=== PATIENT | female | born 1965 | race Caucasian/White ===

== ENCOUNTER 2018-02-25 18:38 | Emergency (ER) | payer SELFPAY ==
[2018-02-25] MEDS ORDERED: Ketorolac Tromethamine 30 MG/ML VIAL ONE (19:19)
[2018-02-25] MEDS ORDERED: Diazepam 5 MG TAB ONE (19:19)
[2018-02-25 19:28] LABS: Band 2 % (5-11); Eosinophils 1 % (0-10); Hemoglobin 14.2 g/dL (12.0-16.0); Lymphocytes 25 % (21-51); MDiff Complete? YES; Mean Corpuscular HGB CONC 35.2 g/dL (32.0-36.0); Mean Corpuscular Hemoglobin 31.6 pg (27.0-31.0); Mean Corpuscular Volume 89.7 fl (81.0-99.0); Mean Platelet Volume 8.1 fL (7.4-10.4); Monocytes 8 % (0-10); Neutrophil 53 % (42-75); PLT Morphology Comment Appears Adequate; Platelet Count 249 thou/uL (130-400); RBC Distribution Width 10.8 % (11.5-14.5); Reactive Lymphocytes 11 % (0-10); White Blood Cell (WBC) Count 7.9 thou/uL (4.8-10.8)
[2018-02-25 19:32] LABS: ALT (SGPT) 23 U/L (8-55); AST (SGOT) 21 U/L (5-34); Albumin 4.4 g/dL (3.5-5.0); Alkaline Phosphatase 69 U/L (40-150); Anion Gap 16 mmol/L (10-20); BUN (Urea Nitrogen) 13 mg/dL (9.8-20.1); Bilirubin, Total 0.5 mg/dL (0.2-1.2); CK (CPK) 49 U/L (29-168); CKMB 0.9 ng/mL (0-6.6); Calc. Creatinine Clearance 0 mL/min (70-130); Carbon Dioxide 24 mmol/L (22-29); Chloride 103 mmol/L (98-107); Estimated GFR-MDRD 69; Globulin 3.4 g/dL (2.4-3.5); Glucose 88 mg/dL (70-105); Lipase 80 U/L (8-78); Potassium 3.9 mmol/L (3.5-5.1); Protein, Total 7.8 g/dL (6.0-8.3); Sodium 139 mmol/L (136-145); Troponin I Less than 0.010 ng/mL (< 0.028)
[2018-02-25] MEDS ORDERED: Lidocaine Viscous Sol 2% 15 ml UD Cup ONE (19:38)
[2018-02-25] MEDS ORDERED: Mag-Al Plus 1200 MG/1200 MG/120 MG/30 ML UDCUP ONE (19:38)
--- NOTE | 2018-02-25 19:47 | RAD ---
TWO VIEWS CHEST: 02/25/18 HISTORY: Cough. COMPARISON: None. FINDINGS: Normal cardiac silhouette. The lungs and pleural spaces are clear. No pneumothorax or osseous abnorma lities. IMPRESSION: No acute cardiopulmonary process. POS: [facility]
--- NOTE | 2018-02-25 20:04 | CT ---
CT ANGIOGRAM OF THE THORACIC AND ABDOMINAL AORTA: HISTORY: Three days of chest pain. Burning sensation in the extremities. COMPARISON: None. TECHNIQUE: CT angiogram of the thoracic and abdominal aorta are performed in the axial plane. Three-dimensional reformatted images are submitted for interpretation. FINDINGS: CHEST: No mediastinal mass, lymphadenopathy, or hematoma. Heart size is normal. No pericardial eff usion. Trachea and central bronchi are patent. Lungs are clear of any consolidation or masses. Min imal linear opacities likely represent areas of scar/atelectasis. No pleural effusion or pneumothora x. ABDOMEN: Intrahepatic and extrahepatic portal vein is patent. The gallbladder is surgically absent. The liver, spleen, pancreas, and adrenal glands have appropriate arterial phase enhancement. No ga strohepatic, retrocrural, or periportal lymphadenopathy. No mesenteric mass, lymphadenopathy, free air, or free fluid. Limited evaluation of the alimentary canal due to lack of oral contrast. No evidence of bowel obstru ction. The ileocecal junction is normal. The appendix is surgically absent. No evidence of colonic obstruction. Symmetric attenuation of the psoas muscle. Symmetric enhancement of the kidneys. The visualized ureters are unremarkable. The thoracic and lumbar spine vertebral body heights are maintained. No fracture. ANGIOGRAM: The aortic root, ascending thoracic aorta, aortic arch, descending thoracic aorta, abdomi nal aorta, and aortic bifurcation have an overall normal diameter. No evidence of aneurysm. No evid ence of dissection. The origin of the great vessels of the neck, as well as the subclavian arteries, is unremarkable. Th e central pulmonary arteries have appropriate enhancement without obvious central filling defect. Th e superior mesenteric artery origin, bilateral renal artery ostia, and inferior mesenteric artery are patent. The visualized iliac arteries are also patent. There appears to be short-segment moderate stenosis involving the origin of the celiac artery. IMPRESSION: 1. No evidence of aneurysm or dissection. 2. 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 POS: [facility]
== END 2018-02-25 20:15 | disposition home or self-care (01) ==
LOC: SCSER 18:38
DX: K21.9 Gastro-esophageal reflux disease without esophagitis (principal); G62.9 Polyneuropathy, unspecified; M62.838 Other muscle spasm; I10 Essential (primary) hypertension; E78.00 Pure hypercholesterolemia, unspecified; F41.9 Anxiety disorder, unspecified; F32.9 Major depressive disorder, single episode, unspecified; G89.29 Other chronic pain; Z63.79 Other stressful life events affecting family and household; Z79.899 Other long term (current) drug therapy
CPT/HCPCS: 71046; 71275; 80053; 82550; 82553; 83690; 84484; 85025; 93005; 96374; J1885

== ENCOUNTER 2018-10-07 11:24 | Outpatient (CLI) | payer OTHER ==
--- NOTE | 2018-10-07 14:24 | MRI ---
MRI LUMBAR SPINE WITHOUT CONTRAST: History: Low back pain that radiates down both hips for one year. Technique: Multiplanar, multisequence MRI images were obtained of the lumbar spine without contrast. FINDINGS: Mild disc desiccation is seen in the mid lumbar spine. Vertebral bodies and intervertebral discs demo nstrate normal height and alignment without fracture or subluxation. The conus medullaris terminates normally at T12. The prevertebral and paraspinal soft tissues are unremarkable. T12-L1: Unremarkable. L1-2: Unremarkable. L2-3: A small generalized concentric disc bulge is seen. No posterior facet arthrosis. Minimal centra l canal stenosis. No neural foraminal stenosis. L3-4: Unremarkable. L4-5: A minimal generalized concentric disc bulge is seen. No posterior facet arthrosis. No significa nt neural foraminal or central canal stenosis. L5-S1: Unremarkable. IMPRESSION: Mild degenerative changes of the lumbar spine as above. POS: [facility]
== END 2018-10-07 11:25 | disposition home or self-care (01) ==
LOC: SCSMRI 11:24
PROVIDERS: ATTEND Family Medicine
DX: M54.41 Lumbago with sciatica, right side (principal); M54.42 Lumbago with sciatica, left side; G89.29 Other chronic pain; M47.816 Spondylosis without myelopathy or radiculopathy, lumbar region
CPT/HCPCS: 72148

== ENCOUNTER 2018-11-17 15:27 | Emergency (ER) | payer OTHER, SELFPAY ==
[2018-11-17] MEDS ORDERED: Metoclopramide HCl 10 MG/2 ML VIAL ONE (16:06)
[2018-11-17] MEDS ORDERED: diphenhydrAMINE 50 MG/ML VIAL ONE (16:06)
[2018-11-17 16:21] LABS: Eosinophils 2 % (0-10); Hemoglobin 14.7 g/dL (12.0-16.0); Lymphocytes 28 % (21-51); MDiff Complete? YES; Mean Corpuscular HGB CONC 34.3 g/dL (32.0-36.0); Mean Corpuscular Hemoglobin 31.6 pg (27.0-31.0); Mean Corpuscular Volume 92.1 fL (78.0-98.0); Mean Platelet Volume 8.7 fL (7.4-10.4); Monocytes 3 % (0-10); Neutrophil 57 % (42-75); Platelet Count 347 thou/uL (130-400); Platelet Morphology Comment Appears Adequate; Reactive Lymphocytes 10 % (0-10); Red Blood Cell (RBC) Count 4.64 mill/uL (4.20-5.40); White Blood Cell (WBC) Count 8.4 thou/uL (4.8-10.8)
[2018-11-17 16:25] LABS: ALT (SGPT) 42 U/L (8-55); AST (SGOT) 33 U/L (5-34); Albumin 4.3 g/dL (3.5-5.0); Alkaline Phosphatase 53 U/L (40-150); Anion Gap 16 mmol/L (10-20); BUN (Urea Nitrogen) 12 mg/dL (9.8-20.1); Bilirubin, Total 0.4 mg/dL (0.2-1.2); Calc. Creatinine Clearance 0 mL/min (70-130); Calcium 9.7 mg/dL (7.8-10.44); Carbon Dioxide 25 mmol/L (22-29); Chloride 104 mmol/L (98-107); Estimated GFR-MDRD 72; Globulin 2.8 g/dL (2.4-3.5); Glucose 86 mg/dL (70-105); Potassium 3.5 mmol/L (3.5-5.1); Protein, Total 7.1 g/dL (6.0-8.3); Sodium 141 mmol/L (136-145)
--- NOTE | 2018-11-17 16:44 | RAD ---
2 VIEW CHEST: Date: 11/17/18 COMPARISON: 02/25/18. CLINICAL INDICATION: Epigastric pain. FINDINGS: No free air is seen beneath the hemidiaphragms. Cardiac silhouette is within normal limits of size. T here is no lobar consolidation, effusion, or pneumothorax. IMPRESSION: No focal consolidation. POS: [facility]
--- NOTE | 2018-11-17 17:02 | CT ---
HEAD CT NONCONTRAST: Date: 11/17/18 CLINICAL HISTORY: Dizziness. No prior comparison. FINDINGS: No acute intracranial hemorrhage, mass effect, midline shift, or ventriculomegaly. There is no acute fluid level of the imaged paranasal sinuses. IMPRESSION: No acute intracranial abnormalities. POS: [facility]
== END 2018-11-17 17:17 | disposition home or self-care (01) ==
LOC: SCSER 15:27
DX: R51 Headache (principal); R42 Dizziness and giddiness; I10 Essential (primary) hypertension; E03.9 Hypothyroidism, unspecified; E78.5 Hyperlipidemia, unspecified; F41.9 Anxiety disorder, unspecified; F32.9 Major depressive disorder, single episode, unspecified; F43.10 Post-traumatic stress disorder, unspecified; Z87.891 Personal history of nicotine dependence; Z79.899 Other long term (current) drug therapy
CPT/HCPCS: 70450; 71046; 80053; 84484; 85025; 93005; 96365; 96375; J1200; J2765

== ENCOUNTER 2018-12-07 11:54 | Outpatient (CLI) | payer OTHER ==
--- NOTE | 2018-12-07 13:39 | RAD ---
LUMBAR SPINE 3 VIEWS INCLUDING FLEXION AND EXTENSION: Date: 12/07/18 HISTORY: Low back pain. FINDINGS/IMPRESSION: Lateral views of the lumbar spine in neutral, flexion, and extension positions demonstrate mild degen erative changes. No compression fracture or subluxation is seen. No change in alignment is noted on f lexion or extension. POS: [facility]
--- NOTE | 2018-12-07 15:15 | MRI ---
MRI THORACIC SPINE WITHOUT CONTRAST: 12/07/2018 HISTORY: Pain with radiculopathy bilaterally. COMPARISON: None. TECHNIQUE: Multiplanar, multisequence MR imaging of the thoracic spine provided without contrast. FINDINGS: The sagittal STIR imaging demonstrates no focal area of osseous marrow edema. Thoracic vertebral bod y height and alignment appear within normal limits. There is no significant central canal stenosis at any level within the thoracic spine. There is no f ocal area of abnormal signal intensity identified within the imaged spinal cord. There is a small di sk protrusion in the right paracentral region, with an associated annular tear at T12-L1 on the right . This causes no significant central canal or neural foraminal stenosis. There is no significant neural foraminal stenosis on either side at any level within the thoracic spi ne. Vertebral body marrow signal intensity appears within normal limits throughout the thoracic spine. IMPRESSION: Mild disk disease at T12-L1, as detailed above. There is no significant central canal or neural fora brad stenosis within the thoracic spine. POS: [facility]
== END 2018-12-07 11:55 | disposition home or self-care (01) ==
LOC: SCSMRI 11:54
PROVIDERS: ATTEND Nurse Practitioner Family
DX: M54.6 Pain in thoracic spine (principal); M54.5 Low back pain; M47.816 Spondylosis without myelopathy or radiculopathy, lumbar region; M51.35 Other intervertebral disc degeneration, thoracolumbar region
CPT/HCPCS: 72100; 72146

== ENCOUNTER 2019-01-04 10:21 | Outpatient (CLI) | payer OTHER ==
[~2019-01-04 10:21] MED LIST: Gadobenate Dimeglumine 529 MG/1 ML (20ML VIAL) ONE
--- NOTE | 2019-01-04 21:12 | MRI ---
BRAIN MRI WITHOUT AND WITH CONTRAST: History: Chronic non-intractable headaches. Polyneuropathy. Comparison: None. Technique: MRI of the brain was performed with and without intravenous gadolinium administration. Mul tisequential, multiplanar imaging was performed. FINDINGS: There does appear to be artifact projecting which appears to be something in the patient's right fron nery scalp or possibly patient's right anterior hair. No definite hemorrhage on the axial gradient echo sequence. No parenchymal mass, mass effect or midline shift. Brain volume is age appropriate. Cortical castillo whi te matter differentiation is preserved. Ventricles and sulci are patent and symmetric. Central arterial flow voids are maintained. Absent restricted diffusion. No significant T2 or FLAIR w bren matter hyperintensities. Adequate aeration of the sinuses and mastoid air cells. Calvarium has appropriate T1 marrow signal intensity. Brain parenchymal structures are unremarkable. No pathologic enhancement of the brain parenchyma. IMPRESSION: Unremarkable pre and post contrast brain MRI. POS: [facility]
== END 2019-01-04 10:22 | disposition home or self-care (01) ==
LOC: SCSMRI 10:21
PROVIDERS: ATTEND Family Medicine
DX: R51 Headache (principal); G62.9 Polyneuropathy, unspecified; R42 Dizziness and giddiness
CPT/HCPCS: 70553; A9577

== ENCOUNTER 2019-01-28 11:35 | Emergency (ER) | payer OTHER ==
[2019-01-28] MEDS ORDERED: Aspirin Chewable 81 MG TAB ONE (12:10)
--- NOTE | 2019-01-28 12:15 | RAD ---
EXAM: CHEST TWO VIEWS: History: Chest pain/shortness of breath Comparison: 11-17-18 FINDINGS: Heart size is normal. The lungs are clear. No pneumonia, edema, pleural effusion, or other acute proc ess. IMPRESSION: No acute intrathoracic disease. Stable in appearance. POS: [facility]
[2019-01-28] MEDS ORDERED: Lorazepam 2 MG/ML VIAL ONE (12:33)
[2019-01-28 12:52] LABS: ALT (SGPT) 31 U/L (8-55); Albumin 4.5 g/dL (3.5-5.0); Alkaline Phosphatase 64 U/L (40-150); Anion Gap 17 mmol/L (10-20); BUN (Urea Nitrogen) 13 mg/dL (9.8-20.1); Bilirubin, Total 0.7 mg/dL (0.2-1.2); Calc. Creatinine Clearance 0 mL/min (70-130); Calcium 9.7 mg/dL (7.8-10.44); Carbon Dioxide 22 mmol/L (22-29); Chloride 104 mmol/L (98-107); Estimated GFR-MDRD 86; Glucose 70 mg/dL (70-105); Lipase 54 U/L (8-78); Potassium 4.4 mmol/L (3.5-5.1); Protein, Total 7.5 g/dL (6.0-8.3); Sodium 139 mmol/L (136-145)
[2019-01-28 13:04] LABS: AST (SGOT) 31 U/L (5-34)
[2019-01-28 13:09] LABS: Hemoglobin 13.4 g/dL (12.0-16.0); Mean Corpuscular Hemoglobin 31.1 pg (27.0-31.0); Mean Corpuscular Volume 91.4 fL (78.0-98.0); Mean Platelet Volume 6.9 fL (7.4-10.4); Platelet Count 286 thou/uL (130-400); RBC Distribution Width 11.9 % (11.5-14.5); Red Blood Cell (RBC) Count 4.32 mill/uL (4.20-5.40); White Blood Cell (WBC) Count 6.5 thou/uL (4.8-10.8)
[2019-01-28 13:10] LABS: #Basophils 0.1 thou/uL (0.0-0.2); #Eosinphils 0.1 thou/uL (0.0-0.7); #Lymphocytes 2.6 thou/uL (1.20-3.40); #Monocytes 0.5 thou/uL (0.11-0.59); #Neutrophils 3.3 thou/uL (1.40-6.50); %Basophils 1.4 % (0.0-1.0); %Eosinophils 1.5 % (0.0-10.0); %Lymphocytes 39.9 % (21.0-51.0); %Neutrophils 50.3 % (42.0-75.0)
[2019-01-28 15:41] LABS: Troponin I Less than 0.010 ng/mL (< 0.028)
== END 2019-01-28 16:09 | disposition home or self-care (01) ==
LOC: SCSER 11:35
DX: R07.89 Other chest pain (principal); R05 Cough; R09.89 Other specified symptoms and signs involving the circulatory and respiratory systems; R20.2 Paresthesia of skin; E78.5 Hyperlipidemia, unspecified; I10 Essential (primary) hypertension; F41.9 Anxiety disorder, unspecified; F43.10 Post-traumatic stress disorder, unspecified; Z87.891 Personal history of nicotine dependence
CPT/HCPCS: 71046; 80053; 83690; 83880; 84484; 85025; 85379; 87804; 93005; 96374; J2060

== ENCOUNTER 2019-02-01 05:59 | Day surgery (SDC) | payer OTHER ==
[2019-01-29 14:08] VITALS: BMI 22.9
[2019-02-01] MEDS ORDERED: Diazepam 5 MG TAB ONE (06:16)
[2019-02-01] MEDS ORDERED: Heparin 10,000 UNITS/1 ML VIAL ONE (07:51)
[2019-02-01] MEDS ORDERED: Verapamil 5 MG/2 ML VIAL ONE (07:51)
[2019-02-01] MEDS ORDERED: Nitroglycerin 100MG/250ML BOT 250 ML ONE (07:51)
[2019-02-01] MEDS ORDERED: Midazolam HCl 2 mg/2 ml Vial ONE (08:15)
[2019-02-01] MEDS ORDERED: Fentanyl 100 MCG/2 ML VIAL ONE (08:15)
[2019-02-01] MEDS ORDERED: Morphine 2 MG/ML SYRINGE ONE (08:52)
[2019-02-01] MEDS ORDERED: Atropine Sulfate 1 mg/10 ml Syringe ONE (10:16)
[2019-02-01] MEDS ORDERED: EPINEPHrine 1 MG/ML AMP ONE (10:17)
[2019-02-01] MEDS ORDERED: EPINEPHrine 1 MG/10 ML Abboject SYRINGE ONE (10:17)
[2019-02-01] MEDS ORDERED: Iopamidol 370 76% 100 ML VIAL ONE (10:54)
--- NOTE | 2019-02-02 21:07 | EKG ---
Test Reason : POST CODE BLUE Blood Pressure : / mmHG Vent. Rate : 106 BPM Atrial Rate : 106 BPM P-R Int : 180 ms QRS Dur : 084 ms QT Int : 364 ms P-R-T Axes : 047 048 015 degrees QTc Int : 483 ms Sinus tachycardia Otherwise normal ECG When compared with ECG of 17-NOV-2018 15:35, Vent. rate has increased BY 35 BPM QT has lengthened Confirmed by BRIANNE ANN, . S. (4) on 02/02/2019 9:06:41 PM Referred By: GEORGE Confirmed By:DR. Arlette DECKER MD
== END 2019-02-01 15:35 | disposition home or self-care (01) ==
LOC: CCL 05:59
PROVIDERS: ATTEND Internal Medicine Cardiovascular Disease
PROC: B2101ZZ Fluoroscopy of Single Coronary Artery using Low Osmolar Contrast (ICD-10-PCS; principal; 2019-02-01)
PROC: 4A023N7 Measurement of Cardiac Sampling and Pressure, Left Heart, Percutaneous Approach (ICD-10-PCS; principal; 2019-02-01)
DX: I25.10 Atherosclerotic heart disease of native coronary artery without angina pectoris (principal); I10 Essential (primary) hypertension; F32.9 Major depressive disorder, single episode, unspecified; E78.5 Hyperlipidemia, unspecified; E03.9 Hypothyroidism, unspecified; G62.9 Polyneuropathy, unspecified; Z90.710 Acquired absence of both cervix and uterus; Z90.49 Acquired absence of other specified parts of digestive tract; Z90.89 Acquired absence of other organs; Z88.8 Allergy status to other drugs, medicaments and biological substances; Z79.899 Other long term (current) drug therapy; Z98.890 Other specified postprocedural states
CPT/HCPCS: 93005; 93010; 93458; 99152; C1769; J0171; J0461; J1644; J2250; J2270; J3010; Q9967

== ENCOUNTER 2019-04-01 06:46 | Day surgery (SDC) | payer OTHER ==
[2019-03-31 14:31] VITALS: BMI 22.4
--- NOTE | 2019-04-01 11:25 | OP ---
DATE OF PROCEDURE: 04/01/2019 PROCEDURES PERFORMED: 1. Esophagogastroduodenoscopy with biopsy. 2. Colonoscopy with polypectomy. INDICATIONS FOR PROCEDURE: Nausea, vomiting, midepigastric abdominal pain, and personal history of colon polyps (colonoscopy in 2014 with unknown number of polyps removed and unknown histology). DESCRIPTION OF PROCEDURE: After the risks and benefits of the procedures were explained to the patient including risks of bleeding, infection, perforation, reactions to anesthesia, aspiration and/or pain, informed consent was obtained. The patient was then taken to the endoscopy suite, where deep sedation was administered via propofol and anesthesia support. Once adequate sedation was achieved, the standard gastroscope was introduced into the mouth with intubation of the esophagus, stomach, and the proximal small intestines with the findings listed below. Upon completion of this portion of the procedure, the gastroscope was removed from the patient and the bed was rotated 180 degrees in anticipation for the colonoscopy. After a digital rectal examination was performed, the standard colonoscope was introduced into the rectum and advanced to the terminal ileum without difficulty. The quality of the prep was good with pockets of semi-solid/liquid stool that was easily amenable to suctioning. The patient tolerated the procedure well with no immediate perioperative complications. Upon conclusion of the colonoscopy, all equipment was removed from the patient and the patient was then transferred to Day Stay in satisfactory condition. EGD FINDINGS: Esophagus: Normal-appearing mucosa was seen in the proximal, mid, and distal esophagus. An irregular Z-line was encountered at the gastroesophageal junction, but there was no evidence of erosions, ulcerations, mass, lesions, or active/recent bleeding. Stomach: Diffuse mildly erythematous mucosa was seen in the gastric cardia, fundus, body, greater curvature, antrum, and incisura with increasing erythema within the antrum itself. However, this increased erythema did not display any erosions, ulcerations, or mass lesions associated with it. Multiple biopsies were taken from the antrum, incisura, and body for evaluation of possible H pylori. Duodenum: Normal-appearing mucosa was seen in both the duodenal bulb and second portion of the duodenum. There was no evidence of erosions, ulcerations, mass, lesions, or active/recent bleeding. IMPRESSION: 1. Diffuse mildly erythematous gastric mucosa was seen throughout the entire stomach, status post biopsies for possible Helicobacter pylori infection. 2. No evidence of overt acid reflux, but an irregular Z-line. 3. Otherwise, normal upper endoscopy. COLONOSCOPY FINDINGS: Digital rectal exam: Normal external examination. Colon findings: Normal-appearing mucosa was seen in the terminal ileum as well as at the appendiceal orifice and ileocecal valve. A 2-to 3-mm polyp was seen in the cecum immediately adjacent to the ileocecal valve and completely removed with Jumbo biopsy forceps. It was retrieved and placed in a specimen jar for evaluation. A [id number] amount of retained semi-solid/liquid stool was seen throughout the entire colon that did initially interfere with visualization of the colonic mucosa, but was amenable to aggressive irrigation and suctioning with sterile water with adequate visualization of the colonic mucosa achieved afterwards. The normal-appearing mucosa was seen in the ascending colon, transverse colon, descending colon, and sigmoid colons. Four 2 to 4 mm polyps were seen in the rectum and completely removed with Jumbo biopsy forceps. They were all retrieved and placed in a specimen jar for evaluation. Small internal hemorrhoids were seen on rectal retroflexion. IMPRESSION: 1. A 2-to 3-mm cecal polyp, status post Jumbo biopsy forceps. 2. Four 2 to 4 mm rectal polyp, status post Jumbo biopsy forceps. 3. Small internal hemorrhoids. RECOMMENDATIONS: 1. We will follow up on the biopsy results with repeat colonoscopy interval depending on pathology report. 2. We would have the patient start PPI daily as previously recommended in clinic. 3. We would have the patient follow up in the GI Clinic in 3 to 4 weeks for followup on nausea, vomiting, abdominal pain, and the pathology results. Job ID: [id number]
[2019-04-01] MEDS ORDERED: PROPOFOL 200 MG/20 ML VIAL ONE (15:31)
== END 2019-04-01 10:10 | disposition home or self-care (01) ==
LOC: SDC 06:46
PROVIDERS: ATTEND Internal Medicine
PROC: 0DBP8ZX Excision of Rectum, Via Natural or Artificial Opening Endoscopic, Diagnostic (ICD-10-PCS; principal; 2019-04-01)
PROC: 0DB68ZX Excision of Stomach, Via Natural or Artificial Opening Endoscopic, Diagnostic (ICD-10-PCS; principal; 2019-04-01)
PROC: 0DBH8ZX Excision of Cecum, Via Natural or Artificial Opening Endoscopic, Diagnostic (ICD-10-PCS; principal; 2019-04-01)
DX: D12.0 Benign neoplasm of cecum (principal); K62.1 Rectal polyp; K64.8 Other hemorrhoids; K31.89 Other diseases of stomach and duodenum; K29.50 Unspecified chronic gastritis without bleeding; B96.81 Helicobacter pylori [H. pylori] as the cause of diseases classified elsewhere; R11.0 Nausea; Z86.010 Personal history of colon polyps
CPT/HCPCS: 88305; 88312; J2704

== ENCOUNTER 2019-06-07 15:31 | Emergency (ER) | payer OTHER ==
[2019-06-07] MEDS ORDERED: Lidocaine Viscous Sol 2% 15 ml UD Cup ONE (16:28)
[2019-06-07] MEDS ORDERED: Mag-Al Plus 1200 MG/1200 MG/120 MG/30 ML UDCUP ONE (16:28)
[2019-06-07 17:00] LABS: #Basophils 0.1 thou/uL (0.0-0.2); #Eosinphils 0.1 thou/uL (0.0-0.7); #Lymphocytes 1.9 thou/uL (1.20-3.40); #Monocytes 0.5 thou/uL (0.11-0.59); #Neutrophils 4.4 thou/uL (1.40-6.50); %Basophils 0.9 % (0.0-1.0); %Eosinophils 1.5 % (0.0-10.0); %Lymphocytes 27.3 % (21.0-51.0); %Monocytes 6.9 % (0.0-10.0); %Neutrophils 63.4 % (42.0-75.0); Hemoglobin 13.8 g/dL (12.0-16.0); Mean Corpuscular HGB CONC 32.7 g/dL (32.0-36.0); Mean Corpuscular Hemoglobin 31.1 pg (27.0-31.0); Mean Corpuscular Volume 94.9 fL (78.0-98.0); Mean Platelet Volume 6.9 fL (7.4-10.4); Platelet Count 305 thou/uL (130-400); RBC Distribution Width 12.1 % (11.5-14.5); Red Blood Cell (RBC) Count 4.43 mill/uL (4.20-5.40); White Blood Cell (WBC) Count 6.9 thou/uL (4.8-10.8)
[2019-06-07 17:16] LABS: ALT (SGPT) 42 U/L (8-55); AST (SGOT) 32 U/L (5-34); Alkaline Phosphatase 49 U/L (40-150); Anion Gap 12 mmol/L (10-20); BUN (Urea Nitrogen) 17 mg/dL (9.8-20.1); Bilirubin, Total 0.4 mg/dL (0.2-1.2); Calc. Creatinine Clearance 0 mL/min (70-130); Calcium 9.5 mg/dL (7.8-10.44); Carbon Dioxide 27 mmol/L (22-29); Chloride 106 mmol/L (98-107); Estimated GFR-MDRD 78; Globulin 2.8 g/dL (2.4-3.5); Glucose 99 mg/dL (70-105); Lipase 82 U/L (8-78); Potassium 4.2 mmol/L (3.5-5.1); Protein, Total 6.8 g/dL (6.0-8.3); Sodium 141 mmol/L (136-145)
[2019-06-07] MEDS ORDERED: Nitroglycerin 0.4 MG TAB (25 Tab Bottle) ONE (17:21)
[2019-06-07] MEDS ORDERED: Ondansetron ODT 4 MG TAB ONE (17:22)
== END 2019-06-07 16:24 | disposition home or self-care (01) ==
LOC: SCSER 15:31
DX: K29.70 Gastritis, unspecified, without bleeding (principal); E03.9 Hypothyroidism, unspecified; E78.5 Hyperlipidemia, unspecified; I10 Essential (primary) hypertension; F41.9 Anxiety disorder, unspecified; F32.9 Major depressive disorder, single episode, unspecified; F43.10 Post-traumatic stress disorder, unspecified; Z87.891 Personal history of nicotine dependence; Z79.899 Other long term (current) drug therapy
CPT/HCPCS: 36415; 80053; 83690; 85025; 93005; Q0162

== ENCOUNTER 2019-06-16 12:28 | Outpatient (CLI) | payer OTHER ==
--- NOTE | 2019-06-16 13:28 | RAD ---
TWO VIEWS ABDOMEN: 06/16/19 PROVIDED CLINICAL HISTORY: Constipation. FINDINGS: The visualized lung bases are free of significant opacity. The abdominal bowel gas pattern is nonspec ific. There is no evidence for pneumoperitoneum. Cholecystectomy clips are seen in the right upper qu adrant. Calcifications overlying right and left medial abdomen as well as pelvis which are nonspecifi c and anyone of which could potentially represent a urinary tract calculus. The osseous structures de monstrate no concerning lytic or blastic lesions. IMPRESSION: 1. Nonspecific bowel gas pattern. 2. Nonspecific abdominal calcifications. If there is concern for urinary tract calculi, consider CT. POS: [facility]
== END 2019-06-16 12:29 | disposition home or self-care (01) ==
LOC: BICRAD 12:28
PROVIDERS: ATTEND Physician Assistant Medical
DX: K59.00 Constipation, unspecified (principal); R10.13 Epigastric pain
CPT/HCPCS: 74019

== ENCOUNTER 2019-08-06 09:36 | Outpatient (CLI) | payer OTHER ==
[~2019-08-06 09:36] MED LIST changes: -Gadobenate Dimeglumine 529 MG/1 ML (20ML VIAL) ONE; +Iopamidol 370 76% 100 ML VIAL ONE
--- NOTE | 2019-08-06 11:47 | CT ---
CT ABDOMEN AND PELVIS WITH IV CONTRAST 08/06/2019 CLINICAL INFORMATION: Epigastric abdominal pain for one year. History of prior appendectomy, cholecystectomy, and hysterect marlene. COMPARISON: CTA abdomen on 02/25/2018. Technique: Multiple contiguous axial CT images are obtained through the abdomen and pelvis with IV contrast. Cor onal reformatted images are provided. FINDINGS: Lower Chest: Lung bases are clear aside from minimal atelectasis versus scarring in the lingula. Vessels: Vascular calcifications are again seen in the abdominal aorta as well as involving the iliac arteries. Abdomen: Portal vein:Patent Gallbladder: Surgically absent. Liver: within normal limits. Spleen: within normal limits. Pancreas: within normal limits. Adrenals: within normal limits. Kidneys: within normal limits. Bowel: Small amount of retained fecal material is seen throughout the colon. Loops of small bowel are normal in caliber. There is evidence of bowel wall thickening involving the duodenum and proximal loops of jejunum. This is nonspecific but can be seen with enteritis. Appendix: Surgically absent. Peritoneum: No ascites or free air; no fluid collection. Mesentery and Retroperitoneum: No enlarged mesenteric or retroperitoneal lymph nodes. Abdominal Wall: within normal limits. Pelvis: Reproductive Organs: Evidence of hysterectomy. Pelvis within normal limits. Bladder: within normal limits. Bones: within normal limits. IMPRESSION: 1. Wall thickening involving the duodenum as well as proximal loops of jejunum. Findings could be rel ated to enteritis. Clinical correlation is suggested. Given the prominent wall thickening, follow-up evaluation is also suggested to ensure resolution of the bowel wall thickening. 2. Postsurgical changes related to cholecystectomy, hysterectomy, and appendectomy. 3. Vascular calcifications in the abdominal aorta and involving the iliac arteries.
== END 2019-08-06 09:37 | disposition home or self-care (01) ==
LOC: SCSCT 09:36
PROVIDERS: ATTEND Physician Assistant Medical
DX: R10.13 Epigastric pain (principal); R19.4 Change in bowel habit; K63.89 Other specified diseases of intestine; I70.0 Atherosclerosis of aorta; I70.8 Atherosclerosis of other arteries; Z90.49 Acquired absence of other specified parts of digestive tract; Z90.710 Acquired absence of both cervix and uterus
CPT/HCPCS: 74177; Q9967

== ENCOUNTER 2021-08-21 15:48 | Emergency (ER) | payer SELFPAY ==
[2021-08-21 16:24] LABS: #Basophils 0.1 thou/uL (0.0-0.2); #Eosinphils 0.1 thou/uL (0.0-0.7); #Lymphocytes 2.6 thou/uL (1.20-3.40); #Monocytes 0.8 thou/uL (0.11-0.59); #Neutrophils 3.1 thou/uL (1.40-6.50); %Basophils 0.9 % (0.0-1.0); %Eosinophils 1.9 % (0.0-10.0); %Lymphocytes 39.1 % (21.0-51.0); %Monocytes 11.4 % (0.0-10.0); %Neutrophils 46.7 % (42.0-75.0); Hemoglobin 13.5 g/dL (12.0-16.0); Mean Corpuscular HGB CONC 34.9 g/dL (32.0-36.0); Mean Corpuscular Volume 94.7 fL (78.0-98.0); Mean Platelet Volume 7.4 fL (7.4-10.4); Platelet Count 323 thou/uL (130-400); RBC Distribution Width 11.8 % (11.5-14.5); Red Blood Cell (RBC) Count 4.09 mill/uL (4.20-5.40); White Blood Cell (WBC) Count 6.5 thou/uL (4.8-10.8)
[2021-08-21] MEDS ORDERED: Ketorolac Tromethamine 30 MG/ML VIAL ONE (16:42)
[2021-08-21 16:52] LABS: ALT (SGPT) 15 U/L (8-55); AST (SGOT) 16 U/L (5-34); Alkaline Phosphatase 61 U/L (40-110); Anion Gap 14 mmol/L (10-20); BUN (Urea Nitrogen) 12 mg/dL (9.8-20.1); Bilirubin, Total 0.4 mg/dL (0.2-1.2); Calc. Creatinine Clearance 0 mL/min (70-130); Calcium 9.4 mg/dL (7.8-10.44); Carbon Dioxide 23 mmol/L (22-29); Chloride 108 mmol/L (98-107); Globulin 2.7 g/dL (2.4-3.5); Glucose 103 mg/dL (70-105); Magnesium 2.2 mg/dL (1.6-2.6); Potassium 3.5 mmol/L (3.5-5.1); Protein, Total 6.7 g/dL (6.0-8.3); Sodium 141 mmol/L (136-145)
== END 2021-08-21 18:09 | disposition home or self-care (01) ==
LOC: ERS 15:48
DX: M54.31 Sciatica, right side (principal); E03.9 Hypothyroidism, unspecified; E78.5 Hyperlipidemia, unspecified; I10 Essential (primary) hypertension; Z87.891 Personal history of nicotine dependence
CPT/HCPCS: 71045; 80053; 83735; 83880; 84443; 84484; 85025; 93005; 96374; J1885

== ENCOUNTER 2022-08-09 09:36 | Outpatient (CLI) | payer OTHER | END 2022-08-09 09:37 | disposition home or self-care (01) | LOC: BICCT 09:36 | PROVIDERS: ATTEND Physician Assistant Medical | DX: R10.13 Epigastric pain (principal); Z90.49 Acquired absence of other specified parts of digestive tract | CPT/HCPCS: 74160; 82565 ==

== ENCOUNTER 2023-12-30 09:52 | Outpatient (CLI) | payer OTHER | END 2023-12-30 09:53 | disposition home or self-care (01) | LOC: BICMAMMO 09:52 | PROVIDERS: ATTEND Family Medicine | DX: Z12.31 Encounter for screening mammogram for malignant neoplasm of breast (principal); Z80.3 Family history of malignant neoplasm of breast | CPT/HCPCS: 77067 ==

== ENCOUNTER 2025-01-06 10:48 | Outpatient (CLI) | payer OTHER | END 2025-01-06 10:49 | disposition home or self-care (01) | LOC: BICMAMMO 10:48 | PROVIDERS: ATTEND Family Medicine | DX: Z12.31 Encounter for screening mammogram for malignant neoplasm of breast (principal); Z80.3 Family history of malignant neoplasm of breast; Z85.828 Personal history of other malignant neoplasm of skin | CPT/HCPCS: 77067 ==